=== PATIENT | male | born 1975 | race Two or more races ===

== ENCOUNTER 2023-05-18 04:50 | Emergency (ER) | payer OTHER ==
[~2023-05-18] VITALS: Ht 167.6 cm; Wt 85.2 kg
[2023-05-18 06:37] VITALS: BP 142/82; PULSE 76; RESP 17; TEMP 97.9; O2SAT 95
[2023-05-18] MEDS: KETOROLAC TROMETH 60MG/2ML VIAL IM ONE (06:52)
[2023-05-18] MEDS ORDERED: METH-1182 PO (07:01)
[2023-05-18] MEDS ORDERED: IBUP-1456 PO (07:01)
== END 2023-05-18 07:09 | disposition home or self-care (01) ==
LOC: ER 04:50
DX: S39.012A Strain of muscle, fascia and tendon of lower back, initial encounter (principal); S01.131A Puncture wound without foreign body of right eyelid and periocular area, initial encounter; S05.11XA Contusion of eyeball and orbital tissues, right eye, initial encounter; Z79.899 Other long term (current) drug therapy; Y04.8XXA Assault by other bodily force, initial encounter; Y93.89 Activity, other specified; Y92.89 Other specified places as the place of occurrence of the external cause; Y99.8 Other external cause status
CPT/HCPCS: 70486; 72100; 96372; 99285; J1885